=== PATIENT | female | born 1975 | race Caucasian/White ===

== ENCOUNTER 2018-04-20 20:27 | Inpatient (IN) | payer OTHER ==
[~2018-04-20] VITALS: Ht 165.1 cm; Wt 113.4 kg
[2018-04-20 20:32] VITALS: BP 145/114
[2018-04-20] MEDS ORDERED: CYMBALTA60 MG PO (21:01)
[2018-04-20] MEDS ORDERED: GABAPENTIN600 MG PO (21:01)
[2018-04-20] MEDS ORDERED: PANTOPRAZOLE SO40 MG PO (21:01)
[2018-04-20] MEDS ORDERED: Wellbutrin Sr100 MG PO (21:02)
[2018-04-20 21:23] VITALS: BP 128/59
[2018-04-20 21:24] LABS: BASO # 0.1 10*3/uL (0.0-0.1); BASO % 0.5 % (0.0-1.0); EOS # 0.1 10*3/uL (0.0-0.4); HEMATOCRIT 39.9 % (37.0-47.0); HEMOGLOBIN 12.6 g/dl (12.0-16.0); LYMPH # 3.3 10*3/uL (1.3-4.4); LYMPH % 26.4 % (27.0-41.0); MEAN CELL VOLUME 76.6 fl (81.0-99.0); MEAN CORPUSCULAR HGB 24.2 pg (27.0-31.0); MEAN CORPUSCULAR HGB CONC 31.6 g/dl (33.0-37.0); MEAN PLATELET VOLUME 10.9 fl (9.6-12.3); MONO # 0.9 10*3/uL (0.1-1.0); MONO % 7.5 % (3.0-9.0); NEUT % 64.2 % (47.0-73.0); PLATELET COUNT AUTOMATED 320 10*3/uL (130-400); RED BLOOD COUNT 5.21 10*6/uL (4.10-5.10); RED CELL DISTRI WIDTH 17.9 % (0-14.5); WHITE BLOOD COUNT 12.5 10*3/uL (4.8-10.8)
[2018-04-20 21:35] LABS: ACT PARTIAL THROMBO TIME 18.5 SECONDS (20.8-31.5); INTERNATIONAL NORM RATIO 0.9 (2.0-3.5)
[2018-04-20 21:44] LABS: ALBUMIN 3.8 gm/dl (3.1-4.5); ALKALINE PHOSPHATASE 66 U/L (45-117); BUN 10 mg/dl (7-24); CHLORIDE 112 mmol/L (98-107); CREATININE 0.77 mg/dL (0.55-1.02); POTASSIUM 3.4 mmol/L (3.5-5.1); SGOT/AST 10 IU/L (3-35); SGPT/ALT 19 U/L (12-78); SODIUM 144 mmol/L (136-145); TOTAL PROTEIN 7.4 gm/dL (6.4-8.2)
[2018-04-20 21:49] VITALS: BP 142/84
[2018-04-20 21:52] LABS: TROPONIN I < 0.015 ng/ml (<0.045)
[2018-04-20 21:53] LABS: BILIRUBIN NEGATIVE (NEGATIVE); BLOOD NEGATIVE (NEGATIVE); CLARITY SL CLOUDY (CLEAR); COLOR YELLOW (YELLOW); GLUCOSE NEGATIVE (NEGATIVE); KETONE TRACE (NEGATIVE); LEUKO ESTERASE NEGATIVE (NEGATIVE); NITRITE NEGATIVE (NEGATIVE); PH 5.5 (5.0-9.0); SPECIFIC GRAVITY >= 1.030 (1.005-1.030); UROBILINOGEN 0.2 E.U./dl (0.2-1.0)
[2018-04-20 22:04] LABS: MUCOUS 1+; RBC 0-2 rbc/hpf (0-2)
[2018-04-20 22:13] VITALS: BP 125/67
[2018-04-20 22:59] VITALS: BP 135/75
[2018-04-20 23:21] VITALS: BP 109/66
[2018-04-21 06:29] LABS: BASO # 0.1 10*3/uL (0.0-0.1); BASO % 0.5 % (0.0-1.0); EOS # 0.2 10*3/uL (0.0-0.4); EOS % 1.7 % (1.0-4.0); HEMATOCRIT 34.8 % (37.0-47.0); LYMPH # 2.5 10*3/uL (1.3-4.4); LYMPH % 26.2 % (27.0-41.0); MEAN CORPUSCULAR HGB 24.2 pg (27.0-31.0); MEAN CORPUSCULAR HGB CONC 30.2 g/dl (33.0-37.0); MEAN PLATELET VOLUME 10.7 fl (9.6-12.3); MONO % 10.2 % (3.0-9.0); NEUT # 5.8 10*3/uL (2.3-7.9); NEUT % 61.1 % (47.0-73.0); PLATELET COUNT AUTOMATED 239 10*3/uL (130-400); RED BLOOD COUNT 4.33 10*6/uL (4.10-5.10); RED CELL DISTRI WIDTH 18.2 % (0-14.5); WHITE BLOOD COUNT 9.5 10*3/uL (4.8-10.8)
[2018-04-21 06:32] LABS: HEMOGLOBIN 10.5 g/dl (12.0-16.0); MEAN CELL VOLUME 80.4 fl (81.0-99.0)
[2018-04-21 06:54] LABS: BUN 11 mg/dl (7-24); CHLORIDE 113 mmol/L (98-107); CHOLESTEROL 169 mg/dL (<200); CREATININE 0.66 mg/dL (0.55-1.02); FREE T4 0.96 ng/dl (0.76-1.46); HDL CHOLESTEROL 36 mg/dl (40-60); LDL CHOLESTEROL 108 mg/dL (9-159); PHOSPHOROUS 3.6 mg/dL (2.5-4.9); POTASSIUM 3.7 mmol/L (3.5-5.1); SODIUM 145 mmol/L (136-145); TRIGLYCERIDES 127 mg/dl (<150); VLDL CHOLESTEROL 25 mg/dL (6-40)
[2018-04-21 07:13] LABS: VITAMIN D, 25-HYDROXY 21.7 ng/mL (30-100)
[2018-04-21 08:00] VITALS: BP 103/57
[2018-04-21 12:00] VITALS: BP 109/54
[2018-04-21 16:00] VITALS: BP 105/63
== END 2018-04-21 17:30 | disposition home or self-care (01) | DRG 392 ==
LOC: ED 20:27 → 5E 04-21 01:57
PROVIDERS: Emergency Medicine Emergency Medical Services; Internal Medicine
DX: R10.9 Unspecified abdominal pain (principal); K56.609 Unspecified intestinal obstruction, unspecified as to partial versus complete obstruction; R65.10 Systemic inflammatory response syndrome (SIRS) of non-infectious origin without acute organ dysfunction; E66.01 Morbid (severe) obesity due to excess calories; G89.29 Other chronic pain; Z96.641 Presence of right artificial hip joint; K21.9 Gastro-esophageal reflux disease without esophagitis; M48.00 Spinal stenosis, site unspecified; E87.6 Hypokalemia; R79.82 Elevated C-reactive protein (CRP); Z72.0 Tobacco use; Z88.6 Allergy status to analgesic agent; Z90.710 Acquired absence of both cervix and uterus; Z80.8 Family history of malignant neoplasm of other organs or systems; Z98.51 Tubal ligation status; Z79.899 Other long term (current) drug therapy; Z71.6 Tobacco abuse counseling

== ENCOUNTER → 2019-06-14 | Outpatient (CLI) | payer OTHER ==
[~2019-06-14] MED LIST: CYMBALTA60 MG PO; GABAPENTIN600 MG PO; PANTOPRAZOLE SO40 MG PO; Wellbutrin Sr100 MG PO
[2019-06-14 16:19] LABS: PTH INTACT 70.9 pg/mL (18.5-88.0); VITAMIN D, 25-HYDROXY 19.7 ng/mL (30-100)
== END | disposition home or self-care (01) ==
LOC: LAB 15:08
PROVIDERS: Nurse Practitioner Family
DX: E83.51 Hypocalcemia (principal)

== ENCOUNTER → 2019-06-22 | Outpatient (CLI) | payer OTHER ==
[2019-06-22 11:13] LABS: PTH INTACT 67.7 pg/mL (18.5-88.0)
== END | disposition home or self-care (01) ==
LOC: LAB 09:34
PROVIDERS: Nurse Practitioner Family
DX: E83.51 Hypocalcemia (principal)

== ENCOUNTER → 2019-07-18 | Outpatient (CLI) | payer OTHER ==
[~2019-07-18] MED LIST changes: +FLONASE ALLERG9.9 ML NAS; +METFORMIN HYD1000 MG PO; +MIRALAX119 GM PO; +NORCO 5-325 TA1 EACH PO; +PROAIR HFA8.5 GM INH; +REXULTI2 MG PO; +TOPIRAMATE25 M3 PO; +TROKENDI PO; +TYLENOL EXTRA500 M2 PO; +ZOFRAN4 MG PO
== END | disposition home or self-care (01) ==
LOC: ORTHO 01:20
DX: G56.01 Carpal tunnel syndrome, right upper limb (principal)

== ENCOUNTER → 2019-07-21 | Outpatient (CLI) | payer OTHER ==
[2019-07-21 09:54] LABS: FERRITIN 10.4 ng/mL (10.0-291.0)
[2019-07-22 06:10] LABS: FOLLICLE STIMULATING HORMONE 2.2 mIU/mL (.); LUTEINIZING HORMONE 004283 5.2 mIU/mL (.); PROLACTIN 004465 32.5 ng/mL (4.8-23.3)
[2019-07-23 07:08] LABS: TESTOSTERONE FREE, (DIRECT) 0.8 pg/mL (0.0-4.2)
== END | disposition home or self-care (01) ==
LOC: LAB 08:14
PROVIDERS: Internal Medicine Pulmonary Disease
DX: E88.81 Metabolic syndrome and other insulin resistance (principal); F50.9 Eating disorder, unspecified; E66.01 Morbid (severe) obesity due to excess calories; G25.81 Restless legs syndrome; R53.83 Other fatigue; R06.02 Shortness of breath; L30.4 Erythema intertrigo

== ENCOUNTER → 2019-08-03 | Outpatient (CLI) | payer OTHER ==
[2019-08-03 15:12] LABS: BASO # 0.1 10*3/uL (0.0-0.1); BASO % 0.8 % (0.0-1.0); EOS # 0.2 10*3/uL (0.0-0.4); EOS % 2.4 % (1.0-4.0); HEMATOCRIT 38.4 % (37.0-47.0); HEMOGLOBIN 12.5 g/dl (12.0-16.0); LYMPH % 38.9 % (27.0-41.0); MEAN CELL VOLUME 86.1 fl (81.0-99.0); MEAN CORPUSCULAR HGB CONC 32.6 g/dl (33.0-37.0); MEAN PLATELET VOLUME 10.5 fl (9.6-12.3); MONO # 0.6 10*3/uL (0.1-1.0); MONO % 7.6 % (3.0-9.0); NEUT # 3.9 10*3/uL (2.3-7.9); NEUT % 49.9 % (47.0-73.0); PLATELET COUNT AUTOMATED 299 10*3/uL (130-400); RED BLOOD COUNT 4.46 10*6/uL (4.10-5.10); RED CELL DISTRI WIDTH 15.3 % (0-14.5); WHITE BLOOD COUNT 7.8 10*3/uL (4.8-10.8)
[2019-08-03 15:21] LABS: BUN 10 mg/dl (7-24); CHLORIDE 112 mmol/L (98-107); POTASSIUM 3.9 mmol/L (3.5-5.1); SODIUM 140 mmol/L (136-145)
== END | disposition home or self-care (01) ==
LOC: LAB 13:13
PROVIDERS: Orthopaedic Surgery
DX: G56.00 Carpal tunnel syndrome, unspecified upper limb (principal); J45.909 Unspecified asthma, uncomplicated; F17.200 Nicotine dependence, unspecified, uncomplicated; R05 Cough; Z90.710 Acquired absence of both cervix and uterus

== ENCOUNTER 2019-08-05 15:39 | Inpatient (IN) | payer OTHER ==
[~2019-08-05] VITALS: Ht 167.6 cm; Wt 112.7 kg
[~2019-08-05 15:39] MED LIST changes: -MIRALAX119 GM PO; -NORCO 5-325 TA1 EACH PO; -TYLENOL EXTRA500 M2 PO; -ZOFRAN4 MG PO
[2019-08-05 15:42] VITALS: BP 119/51; BP 95/51
--- NOTE | 2019-08-05 16:05 | NUR ---
AMBULATORY TO THE BATHROOM FOR URINE SPECIMEN.
--- NOTE | 2019-08-05 16:23 | NUR ---
Pillow and blanket provided.
[2019-08-05 16:26] LABS: BASO # 0.1 10*3/uL (0.0-0.1); BASO % 0.4 % (0.0-1.0); EOS # 0.2 10*3/uL (0.0-0.4); EOS % 1.5 % (1.0-4.0); HEMATOCRIT 39.3 % (37.0-47.0); HEMOGLOBIN 12.7 g/dl (12.0-16.0); LYMPH # 2.1 10*3/uL (1.3-4.4); LYMPH % 16.9 % (27.0-41.0); MEAN CELL VOLUME 87.9 fl (81.0-99.0); MEAN CORPUSCULAR HGB 28.4 pg (27.0-31.0); MEAN CORPUSCULAR HGB CONC 32.3 g/dl (33.0-37.0); MEAN PLATELET VOLUME 10.6 fl (9.6-12.3); MONO # 1.3 10*3/uL (0.1-1.0); MONO % 10.1 % (3.0-9.0); NEUT # 8.7 10*3/uL (2.3-7.9); NEUT % 70.7 % (47.0-73.0); PLATELET COUNT AUTOMATED 264 10*3/uL (130-400); RED BLOOD COUNT 4.47 10*6/uL (4.10-5.10); RED CELL DISTRI WIDTH 15.5 % (0-14.5); WHITE BLOOD COUNT 12.4 10*3/uL (4.8-10.8)
[2019-08-05 16:29] LABS: BILIRUBIN NEGATIVE (NEGATIVE); BLOOD TRACE-INTACT (NEGATIVE); CLARITY CLEAR (CLEAR); COLOR YELLOW (YELLOW); GLUCOSE NEGATIVE (NEGATIVE); KETONE NEGATIVE (NEGATIVE); LEUKO ESTERASE NEGATIVE (NEGATIVE); NITRITE NEGATIVE (NEGATIVE); SPECIFIC GRAVITY 1.025 (1.005-1.030); UROBILINOGEN 0.2 E.U./dl (0.2-1.0)
[2019-08-05 16:39] LABS: ALBUMIN 3.2 gm/dl (3.1-4.5); ALKALINE PHOSPHATASE 53 U/L (45-117); BUN 8 mg/dl (7-24); CHLORIDE 113 mmol/L (98-107); CREATININE 0.63 mg/dL (0.55-1.02); LIPASE 170 U/L (73-393); POTASSIUM 3.9 mmol/L (3.5-5.1); SGOT/AST 7 IU/L (3-35); SGPT/ALT 23 U/L (12-78); SODIUM 140 mmol/L (136-145); TOTAL PROTEIN 6.8 gm/dL (6.4-8.2)
--- NOTE | 2019-08-05 16:44 | NUR ---
KEELY IS AT THE BEDSIDE.
[2019-08-05 16:59] LABS: BACTERIA TRACE; EPITHELIAL CELLS 51-100; RBC 0-2 rbc/hpf (0-2); WBC 0-2 wbc/hpf (0-5)
--- NOTE | 2019-08-05 17:47 | NUR ---
PREVIOUS PAIN MEDS TOOK PAIN FROM 07/28. DEMEROL GIVEN FOR 05/28 RLQ PAIN FEELING LIKE CONTRACTIONS THOUGH HAVING A BABY - ISSUES WITH CONSTIPATION FOR @ 8 DAYS WITH SMALL BOWEL MOVEMENT AFTER TAKING 4 LAXATIVE PILLS FROM THE [facility] BUT FEELS LIKE IT MADE THINGS WORSE & ONLY HAD 4 SMALL BALLS COME OUT. CONCERN FOR KIDNEY STONE OR ANOTHER BOWEL OBSTRUCTION ([id number])
[2019-08-05 17:54] VITALS: BP 102/53
--- NOTE | 2019-08-05 18:09 | NUR ---
UPDATED AND IS FEELING MUCH BETTER. NAUSEA IS RESOLVED AND PAIN HAS IMPROVED. APPEARS MUCH MORE RELAXED. DENIES ANY ADDITIONAL NEEDS. CALL LIGHT WITHIN REACH. REMAINS AT BEDSIDE. WILL MONITOR.
--- NOTE | 2019-08-05 18:47 | NUR ---
Resting comfortably and denies any needs.
--- NOTE | 2019-08-05 19:08 | NUR ---
REPORT TO RIK HUTTON.
[2019-08-05 20:00] VITALS: BP 102/50
--- NOTE | 2019-08-05 20:00 | NUR ---
PER CARRIE HUTTON. DR PETERSON CONSULTED. PATIENT TO BE NPO
[2019-08-05 20:15] VITALS: BP 102/50
--- NOTE | 2019-08-05 20:15 | NUR ---
Time: 2014 A 44 year old F admitted to 5E under services of BG CRUZ DO. Pt. arrived via bed from ER. Chief complaint: RLQ ABD PAIN, GISELLE IN NATURE.. SULMA MCGEE
--- NOTE | 2019-08-05 21:31 | NUR ---
REQUESTED AND RECEIVED DILAUDID IV PER PRN ORDER FOR COMPLAINTS OF ABD PAIN RATING A 6. CALL LIGHT WITHIN REACH. WILL MONITOR
--- NOTE | 2019-08-05 22:30 | NUR ---
EARLIER DILAUDID EFFECTIVE, SLEEPING. IV FLUIDS MAINTAINED. CALL LIGHT WITHIN REACH
--- NOTE | 2019-08-05 23:00 | NUR ---
MED REC ACCURATE IN COMPUTER, DR BUCKNER INFORMED
[2019-08-06] VITALS: BP 95/51
--- NOTE | 2019-08-06 | NUR ---
SLEEPING. NO DISTRESS NOTED. VSS
--- NOTE | 2019-08-06 01:12 | NUR ---
AWAKENS, C/O RLQ PAIN RATING A 7. REQUESTED AND RECEIVED DILAUDID IV PER PRN ORDER. CALL LIGHT WITHIN REACH. WILL MONITOR
--- NOTE | 2019-08-06 03:00 | NUR ---
MEDS EFFECTIVE. SLEEPING.
--- NOTE | 2019-08-06 05:09 | NUR ---
REQUESTED AND RECEIVED DILAUDID IV PER PRN ORDER FOR COMPLAINTS OF ABD PAIN RATING A 7. CALL LIGHT WITHIN REACH. WILL MONITOR FOR EFFECTIVENESS
--- NOTE | 2019-08-06 06:00 | NUR ---
MEDS EFFECTIVE. SLEEPING. RESPIRATIONS EASY. IV FLUIDS MAINTAINED. CALL LIGHT WITHIN REACH
[2019-08-06 07:24] LABS: BASO # 0.1 10*3/uL (0.0-0.1); BASO % 0.5 % (0.0-1.0); EOS # 0.2 10*3/uL (0.0-0.4); EOS % 1.6 % (1.0-4.0); HEMATOCRIT 34.5 % (37.0-47.0); HEMOGLOBIN 10.7 g/dl (12.0-16.0); LYMPH # 1.6 10*3/uL (1.3-4.4); MEAN CELL VOLUME 90.1 fl (81.0-99.0); MEAN CORPUSCULAR HGB 27.9 pg (27.0-31.0); MEAN PLATELET VOLUME 10.8 fl (9.6-12.3); MONO # 1.1 10*3/uL (0.1-1.0); MONO % 11.8 % (3.0-9.0); NEUT # 6.5 10*3/uL (2.3-7.9); NEUT % 68.7 % (47.0-73.0); PLATELET COUNT AUTOMATED 214 10*3/uL (130-400); RED BLOOD COUNT 3.83 10*6/uL (4.10-5.10); RED CELL DISTRI WIDTH 15.6 % (0-14.5); WHITE BLOOD COUNT 9.4 10*3/uL (4.8-10.8)
[2019-08-06 07:51] LABS: ALBUMIN 2.6 gm/dl (3.1-4.5); ALKALINE PHOSPHATASE 47 U/L (45-117); BUN 8 mg/dl (7-24); CHLORIDE 111 mmol/L (98-107); CREATININE 0.53 mg/dL (0.55-1.02); FREE T4 0.82 ng/dl (0.76-1.46); POTASSIUM 3.5 mmol/L (3.5-5.1); SGOT/AST 11 IU/L (3-35); SGPT/ALT 17 U/L (12-78); SODIUM 139 mmol/L (136-145); TOTAL PROTEIN 5.8 gm/dL (6.4-8.2)
[2019-08-06 08:00] VITALS: BP 86/38
--- NOTE | 2019-08-06 08:05 | NUR ---
ZOFRAN GIVEN PER PATIENT REQUEST FOR NAUSEA.
--- NOTE | 2019-08-06 09:00 | NUR ---
PATIENT NO LOMGER COMPLAINING ABOUT NAUSEA. ZOFRAN EFFECTIVE.
[2019-08-06 10:00] VITALS: BP 88/48
--- NOTE | 2019-08-06 10:03 | NUR ---
DILAUDID BEING HELD DUE TO LOW BLOOD PRESSURE. TYLENOL 650MG GIVEN PER PATIENT REQUEST FOR ABDOMINAL PAIN.
--- NOTE | 2019-08-06 11:45 | NUR ---
SPOKE WITH DR TOBAR WHO SAID IT WAS OKAY TO DISCONTINUE PATIENT'S MONITOR PER PATIENT REQUEST.
[2019-08-06 12:00] VITALS: BP 102/84
--- NOTE | 2019-08-06 12:14 | NUR ---
DULCOLAX 10MG SUPPOSITORY GIVEN PRESCRIBED FOR CONSTIPATION. MOTRIN AND OFIRMEV [id number] GIVEN A ONE TIME DOSE FOR ABDOMINAL PAIN. ICE BAG ALSO PREVIDED.
[2019-08-06 16:00] VITALS: BP 103/50
--- NOTE | 2019-08-06 16:52 | NUR ---
FLEET ENEMA GIVEN TORADOL GIVEN FOR ABDOMINAL PAIN
--- NOTE | 2019-08-06 17:50 | NUR ---
TORADOL HELPED "SOME" PER PATIENT. NO OTHER REQUESTS FOR PAIN MEDICATION AT THIS TIME.
--- NOTE | 2019-08-06 18:53 | NUR ---
PT STATES SHE HAD A SMALL HARD BOWEL MOVEMENT POST FLEET ENEMA. CONTINUES TO HAVE CRAMPING/PAIN, NOW PASSING GAS AND STATES THAT SHE CAN FEEL "MOVEMENT" IN BOWELS.
[2019-08-06 20:00] VITALS: BP 100/48
--- NOTE | 2019-08-06 20:56 | NUR ---
PATIENT MEDICATED WITH PRN DILAUDID PER REQUEST FOR C/O 8/10 PAIN IN HER ABDOMEN. WILL MONITOR FOR EFFECTIVENESS.
--- NOTE | 2019-08-06 21:40 | NUR ---
PER PATIENT PRN DILAUDID WAS EFFECTIVE AT HELPING MANAGE HER PAIN. CALL LIGHT WITHIN REACH.
[2019-08-07] VITALS: BP 80/40
--- NOTE | 2019-08-07 00:02 | NUR ---
DR. MACDONALD NOTIFIED OF MANUAL BP 80/40. IV DILUADID D/C'D. WILL MONITOR.
[2019-08-07 05:32] VITALS: BP 118/45
--- NOTE | 2019-08-07 05:45 | NUR ---
PATIENT STATES OVERNIGHT THAT SHE HAD ONE SMALL, HARD BOWEL MOVEMENT. PATIENT STATING SHE WANTS TO GO HOME TODAY. UPDATED PATIENT THAT SHE WILL HAVE TO WAIT FOR DOCTORS TO ROUND AND SEE WHAT THE PLAN WILL BE. NO C/O PAIN AT THIS TIME. IF FLUIDS INFUSING PER ORDER. CALL LIGHT WITHIN REACH.
[2019-08-07 08:00] VITALS: BP 106/48
--- NOTE | 2019-08-07 09:08 | NUR ---
TORADOL GIVEN PER PATIENT REQUEST FOR ABDOMINAL PAIN AT A 04/27. WILL ASSESS FOR EFFECTIVENESS.
[2019-08-07] MEDS ORDERED: MIRALAX119 GM PO (11:36)
[2019-08-07 12:00] VITALS: BP 116/51
--- NOTE | 2019-08-07 12:50 | NUR ---
Discharge instructions reviewed with patient/family. Patient receptive and verbalizes understanding. Follow-up care arranged. Written instructions given to patient/family. DR NOLASCO AND DR PETERSON'S OFFICE NUMBERS GIVEN TO PATIENT PER DOCTOR REQUEST. HIGH FIBER DIET EDUCATION HANDOUT PROVIDED TO PATIENT WELL. KATHY FONTENOT
[2019-08-11] MEDS ORDERED: TYLENOL EXTRA500 M2 PO (08:03)
[2019-08-11] MEDS ORDERED: NORCO 5-325 TA1 EACH PO (10:37)
[2019-08-11] MEDS ORDERED: ZOFRAN4 MG PO (10:38)
== END 2019-08-07 12:50 | disposition home or self-care (01) | DRG 251 ==
LOC: ED 15:39 → EDHOLD 19:11 → 5E 20:04
PROVIDERS: Family Medicine; Physician Assistant; ADMIT Emergency Medicine
DX: R10.31 Right lower quadrant pain (principal); E43 Unspecified severe protein-calorie malnutrition; R65.10 Systemic inflammatory response syndrome (SIRS) of non-infectious origin without acute organ dysfunction; K59.00 Constipation, unspecified; E66.01 Morbid (severe) obesity due to excess calories; D64.9 Anemia, unspecified; G89.29 Other chronic pain; F17.200 Nicotine dependence, unspecified, uncomplicated; E87.8 Other disorders of electrolyte and fluid balance, not elsewhere classified; E83.39 Other disorders of phosphorus metabolism; K21.9 Gastro-esophageal reflux disease without esophagitis; Z90.710 Acquired absence of both cervix and uterus; Z98.51 Tubal ligation status; Z80.49 Family history of malignant neoplasm of other genital organs; Z88.8 Allergy status to other drugs, medicaments and biological substances; Z79.899 Other long term (current) drug therapy; Z79.84 Long term (current) use of oral hypoglycemic drugs; Z71.6 Tobacco abuse counseling; Z68.41 Body mass index [BMI] 40.0-44.9, adult

== ENCOUNTER → 2019-08-11 | Day surgery (SDC) | payer OTHER ==
[2019-08-03 13:41] VITALS: BP 117/74
[~2019-08-11] VITALS: Ht 167.6 cm; Wt 112.5 kg
[~2019-08-11] MED LIST changes: +MIRALAX119 GM PO; +NORCO 5-325 TA1 EACH PO; +TYLENOL EXTRA500 M2 PO; +ZOFRAN4 MG PO
[2019-08-11 07:20] VITALS: BP 110/63
[2019-08-11 10:12] VITALS: BP 100/53; BP 93/52
[2019-08-11 10:42] VITALS: BP 111/62
== END | disposition home or self-care (01) ==
LOC: SDC 08-03 13:15
DX: G56.01 Carpal tunnel syndrome, right upper limb (principal); D64.9 Anemia, unspecified; F32.9 Major depressive disorder, single episode, unspecified; K21.9 Gastro-esophageal reflux disease without esophagitis; M54.9 Dorsalgia, unspecified; G89.29 Other chronic pain; E66.01 Morbid (severe) obesity due to excess calories; F17.200 Nicotine dependence, unspecified, uncomplicated; Z90.710 Acquired absence of both cervix and uterus; Z98.890 Other specified postprocedural states; Z79.899 Other long term (current) drug therapy; Z88.8 Allergy status to other drugs, medicaments and biological substances; Z68.41 Body mass index [BMI] 40.0-44.9, adult

== ENCOUNTER → 2019-10-24 | Outpatient (CLI) | payer OTHER | END | disposition home or self-care (01) | LOC: US 11:34 | DX: N89.8 Other specified noninflammatory disorders of vagina (principal); R10.9 Unspecified abdominal pain; R30.0 Dysuria; Z90.710 Acquired absence of both cervix and uterus ==

== ENCOUNTER 2020-03-04 16:18 | Emergency (ER) | payer OTHER ==
[2020-03-04 17:16] LABS: BASO # 0.1 10*3/uL (0.0-0.1); BASO % 0.7 % (0.0-1.0); EOS # 0.2 10*3/uL (0.0-0.4); EOS % 1.9 % (1.0-4.0); HEMATOCRIT 41.2 % (37.0-47.0); LYMPH % 25.1 % (27.0-41.0); MEAN CELL VOLUME 86.6 fl (81.0-99.0); MEAN CORPUSCULAR HGB 28.6 pg (27.0-31.0); MEAN PLATELET VOLUME 10.5 fl (9.6-12.3); MONO # 1.2 10*3/uL (0.1-1.0); MONO % 9.7 % (3.0-9.0); NEUT # 7.5 10*3/uL (2.3-7.9); NEUT % 62.3 % (47.0-73.0); PLATELET COUNT AUTOMATED 291 10*3/uL (130-400); RED BLOOD COUNT 4.76 10*6/uL (4.10-5.10); RED CELL DISTRI WIDTH 15.9 % (0-14.5)
[2020-03-04 17:19] LABS: BILIRUBIN NEGATIVE (NEGATIVE); BLOOD NEGATIVE (NEGATIVE); CLARITY CLEAR (CLEAR); COLOR YELLOW (YELLOW); GLUCOSE NEGATIVE (NEGATIVE); KETONE NEGATIVE (NEGATIVE); LEUKO ESTERASE NEGATIVE (NEGATIVE); NITRITE NEGATIVE (NEGATIVE); UROBILINOGEN 0.2 E.U./dl (0.2-1.0)
[2020-03-04 17:26] LABS: URINE AMPHETAMINES < 1000 (1000ng/ml); URINE BARBITURATES < 200 (200ng/ml); URINE BENZODIAZEPINES < 200 (200ng/ml); URINE CANNABINOIDS (THC) < 50 (50ng/ml); URINE COCAINE < 300 (300ng/ml); URINE METHADONE < 300 (300ng/ml); URINE OPIATES < 300 (300ng/ml)
[2020-03-04 17:28] LABS: BACTERIA TRACE; EPITHELIAL CELLS 31-40
[2020-03-04 17:29] LABS: URINE PHENCYCLIDINE < 25 (25ng/ml)
[2020-03-04 17:32] LABS: ALBUMIN 3.4 gm/dl (3.1-4.5); ALKALINE PHOSPHATASE 60 U/L (45-117); BUN 13 mg/dl (7-24); CHLORIDE 113 mmol/L (98-107); CREATININE 0.82 mg/dL (0.55-1.02); POTASSIUM 3.8 mmol/L (3.5-5.1); SGOT/AST 14 IU/L (3-35); SGPT/ALT 23 U/L (12-78); SODIUM 141 mmol/L (136-145); TOTAL PROTEIN 6.8 gm/dL (6.4-8.2)
[2020-03-04 17:35] LABS: ETHYL ALCOHOL < 3.0 mg/dl (<3)
== END 2020-03-04 22:55 | disposition home health service (06) ==
LOC: ED 16:18
PROVIDERS: Emergency Medicine
DX: F32.9 Major depressive disorder, single episode, unspecified (principal); E11.9 Type 2 diabetes mellitus without complications; J45.909 Unspecified asthma, uncomplicated